=== PATIENT | female | born 1930 | race Two or more races ===

== ENCOUNTER 2019-10-01 02:13 | Inpatient (IN) | payer MEDICARE, MEDICAID ==
[~2019-10-01] VITALS: Ht 157.5 cm; Wt 78.0 kg
--- NOTE | 2019-10-01 02:23 | NUR ---
MS FINISHED STOCK INSPECTOR NOTES Received patient A/O x4, awake via gurney accompanied by 2 roller stitcher, direct admit from [place]. Admitted to [facility] due to RITO, UTI under the service of MD Ramírez. Admission routine done. Patient's belongings will be taken cared of by the family. Son at bedside. Initial skin assessment done, no skin issues identified at this time. Patient able to ambulates to bathroom with steady gait. Admission orders noted and carried out. MRSA sample collected, lab notified to picking supervisor the sample, stored accordingly. Kept on bed clean, dry and comfortable. Call light within easy reach. Will continue to monitor accordingly.
[2019-10-01 02:30] VITALS: BP 144/74
[2019-10-01] MEDS ORDERED: HYDROCODONE/APAP 5/325MG 1 EACH TABLET PO PRN (02:30)
[2019-10-01] MEDS ORDERED: MAGNESIUM HYDROXIDE 30 ML UDC PO PRN (02:30)
[2019-10-01] MEDS ORDERED: ACETAMINOPHEN 325 MG TABLET PO PRN (02:30)
[2019-10-01] MEDS ORDERED: MAG HYDROX/AL HYDROX/SIMETH 30 ML UDC PO PRN (02:30)
[2019-10-01] MEDS ORDERED: ONDANSETRON HCL/PF 4 MG/2 ML VIAL IVP PRN (02:30)
[2019-10-01] MEDS ORDERED: Z GUARD REMEDY 2 OZ OINT TP PRN (02:30)
[2019-10-01] MEDS ORDERED: ZOLPIDEM TARTRATE 5 MG TABLET PO PRN (02:30)
[2019-10-01] MEDS ORDERED: METF-442 PO (02:35)
[2019-10-01] MEDS ORDERED: BENA20TA9 PO (02:35)
[2019-10-01] MEDS ORDERED: METO50TA16 PO (02:35)
[2019-10-01] MEDS: IV D5/0.45 NACL 1,000 ML IV PRN ×3 (02:45→17:35)
[2019-10-01 02:51] VITALS: BP 144/74
--- NOTE | 2019-10-01 06:38 | NUR ---
MS RN CLOSING NOTES Patient asleep, easily awaken, son at bedside. All nursing needs attended, no new complaints/unusualities noted. Kept on bed clean, dry and comfortable. Call light within easy reach. On fall and aspiration precautions. No N/V noted within the shift. Endorsed to the next shift.
[2019-10-01 07:03] LABS: BASOPHILS % (AUTO) 0.2 % (0.0-2.0); EOSINOPHILS % (AUTO) 0.4 % (0.0-6.0); HEMATOCRIT 32 % (33-45); HEMOGLOBIN 10.8 g/dL (11.5-14.8); LYMPHOCYTES # (AUTO) 1.7 /CMM (0.8-4.8); LYMPHOCYTES % (AUTO) 22.6 % (20.0-44.0); MEAN CORPUSCULAR HGB CONC 34 g/dl (31.0-36.0); MEAN CORPUSCULAR VOLUME 90 fL (82-100); MONOCYTES # (AUTO) 0.7 /CMM (0.1-1.30); MONOCYTES % (AUTO) 9.3 % (2.0-12.0); NEUTROPHILS % (AUTO) 67.5 % (43.0-81.0); PLATELET COUNT (AUTO) 220 /CMM (150-450); RED BLOOD CELL COUNT(AUTO) 3.54 MIL/uL (4.0-5.2); WHITE BLOOD COUNT (AUTO) 7.4 K/uL (4.3-11.0)
[2019-10-01 07:51] LABS: ALANINE AMINOTRANSFERASE 9 U/L (12-78); ALBUMIN 2.8 g/dL (3.4-5.0); ALKALINE PHOSPHATASE 43 U/L (46-116); ASPARTATE AMINOTRANSFERASE 14 U/L (15-37); BILIRUBIN,TOTAL 0.3 mg/dL (0.2-1.0); CALCIUM, SERUM 8.3 mg/dL (8.5-10.1); CARBON DIOXIDE 23 mmol/L (21-32); CHLORIDE 100 mmol/L (98-107); CREATININE 1.9 mg/dL (0.6-1.3); GLUCOSE 141 mg/dL (74-106); POTASSIUM 4.2 mmol/L (3.5-5.1); SODIUM SERUM 133 mmol/L (136-145); TOTAL PROTEIN, SERUM 5.9 g/dL (6.4-8.2); UREA NITROGEN, BLOOD 25 mg/dL (7-18)
[2019-10-01 08:00] VITALS: BP 125/64
[2019-10-01 13:00] LABS: CREATININE, URINE 28.4 MG/DL (30.0-125.0); URINE TOTAL PROTEIN 15.8 mg/dL (0-11.9)
[2019-10-01 13:13] LABS: OCCULT BLOOD STOOL NEGATIVE (NEGATIVE)
[2019-10-01 15:17] LABS: APPEARANCE,URINE CLEAR (CLEAR); BILIRUBIN,URINE NEGATIVE (NEGATIVE); COLOR,URINE YELLOW (YELLOW); KETONES,URINE NEGATIVE (NEGATIVE); LEUKOCYTE ESTERASE ,URINE NEGATIVE (NEGATIVE); NITRITE, URINE NEGATIVE (NEGATIVE); PH,URINE 6.5 (5.0-8.0); PROTEIN,URINE NEGATIVE (NEGATIVE); UGLUCOSE NEGATIVE (NEGATIVE); UROBILINOGEN,URINE 0.2 EU/dL (0.2)
[2019-10-01 15:27] LABS: BLOOD, URINE NEGATIVE Ery/uL (NEGATIVE)
[2019-10-01] MEDS ORDERED: DEXTROSE 50%-WATER 50 ML DISP.SYRIN IV PRN (15:30)
[2019-10-01 15:58] LABS: EOSINOPHIL,URINE None Seen
[2019-10-01 16:00] VITALS: BP 128/68
[2019-10-01] MEDS: BLOOD SUGAR DIAGNOSTIC 1 EACH STRIP IN SCH ×2 (17:33→22:27)
--- NOTE | 2019-10-01 19:26 | NUR ---
MS RN CLOSING PATIENT REMAINS A/Ox3-4, ON ROOM AIR, NO RESPIRATORY DISTRESS OR SOB NOTED. FAMILY AT BEDSIDE. PATIENT VOMITED X1 TODAY, 25mL/ GREENISH/CHUNKY. REPORTS OF NAUSEA, ZOFRAN GIVEN. FAMILY REPORTS CONCERNS OF WHY THIS IS HAPPENING TO HER AND DON'T WANT TO BE D/C'D, SHE WAS RECENTLY HOSPITALIZED FOR SIMILAR SYMPTOMS. [place] REPORT CT ABDO FROM 09/26 IN CHART, VALERY THOMAS DNP AWARE. IV SITE C/D/I INFUSING FLUIDS ORDERED, BED ALARM ON. PATIENT ABLE TO AMBULATE. BED ALARM ON FOR SAFETY. CALL LIGHT WITHIN REACH, ENDORSED TO NOC RN FOR MOO
--- NOTE | 2019-10-01 20:11 | NUR ---
RECIEVED MS. BARON IN BED. ALERT AND ORIENATATED. SMILING DENIES NAUSES AT THIS TIME. SPEAKS SPAINISH WITH SOME UNDERSTANDING OF AMHARIC. FAMILY AT THE BEDSIDE. LYING ON HER LEFT SIDE. IV SITE W/O REDNESS BED ALARM MACHINERY MECHANIC LIGHT WITHIN REACH
[2019-10-01 21:23] VITALS: BP 132/63
[2019-10-01] MEDS: CEFTRIAXONE 1 G in IV D5W 50 ML IV SCH (21:50)
[2019-10-01] MEDS: INSULIN REGULAR, HUMAN 100 UNIT/ML 3 ML VIAL SQ PRN (22:32)
[2019-10-02] MEDS: IV D5/0.45 NACL 1,000 ML IV PRN ×2 (06:38→23:28)
--- NOTE | 2019-10-02 06:55 | NUR ---
URUGUAYAN SPEAKING. SON AT THE BEDSIDE THRU THE NIGHT AND WAS HELPFUL TO TRANSLATE. SHE REMAINS CONTINENT AND VOIDS 300 TO 500 CC EACH TIME. ASSISTED TO TA AND EFFECTIVE. HE BATHROOM SLOW CAUTIOUS AMBULATIONS. MEDICATED X 1 FOR NAUSE
--- NOTE | 2019-10-02 07:00 | NUR ---
MS INITIAL NOTES PATIENT RECEIVED FROM PM SHIFT. PATIENT IS A/OX4. PATIENT IS TOLERATING ROOM AIR , WITH NO SIGNS OF DISTRESS. PATIENT SON WAS AT BED SIDE. PATIENT IS AMBULATORY BUT NEEDS ASSISTANCE TO THE BATHROOM. PATIENT SHOW NO SIGNS OF SKIN BREAK DOWN. PATIENT WAS NOT IN PAIN PATIENT BED IN LOWEST POSTION, CALL LIGHT WITH IN REACH , SAFETY MAINTAINED. SON WAS NOTIFED ABOUT PLAN AND CARE WELL TREATMENT PLAN.
[2019-10-02 07:07] LABS: BASOPHILS % (AUTO) 0.3 % (0.0-2.0); EOSINOPHILS % (AUTO) 1.4 % (0.0-6.0); HEMATOCRIT 31 % (33-45); HEMOGLOBIN 10.6 g/dL (11.5-14.8); LYMPHOCYTES # (AUTO) 1.3 /CMM (0.8-4.8); LYMPHOCYTES % (AUTO) 18.7 % (20.0-44.0); MEAN CORPUSCULAR HGB CONC 34 g/dl (31.0-36.0); MEAN CORPUSCULAR VOLUME 90 fL (82-100); MONOCYTES # (AUTO) 0.7 /CMM (0.1-1.30); MONOCYTES % (AUTO) 10.1 % (2.0-12.0); NEUTROPHILS # (AUTO) 4.7 /CMM (1.8-8.9); NEUTROPHILS % (AUTO) 69.5 % (43.0-81.0); PLATELET COUNT (AUTO) 223 /CMM (150-450); RED BLOOD CELL COUNT(AUTO) 3.46 MIL/uL (4.0-5.2); WHITE BLOOD COUNT (AUTO) 6.7 K/uL (4.3-11.0)
[2019-10-02 07:23] LABS: IRON, SERUM 33 ug/dl (50-175); TOTAL IRON BINDING CAPACITY 193 ug/dl (250-450)
[2019-10-02 07:33] LABS: CHOLESTEROL 128 mg/dL (<200); CREATINE KINASE, TOTAL 69 U/L (26-192); FERRITIN 120 ng/mL (8-388); HDL CHOLESTEROL 35 mg/dL (40-60); LDL 77 mg/dL (0-99); THYROID STIMULATING HORMONE 0.678 uIU/mL (0.358-3.74); TRIGLYCERIDES 112 mg/dL (30-150)
[2019-10-02 07:36] LABS: ALANINE AMINOTRANSFERASE 11 U/L (12-78); ALBUMIN 2.8 g/dL (3.4-5.0); ALKALINE PHOSPHATASE 41 U/L (46-116); ASPARTATE AMINOTRANSFERASE 17 U/L (15-37); BILIRUBIN,TOTAL 0.2 mg/dL (0.2-1.0); CALCIUM, SERUM 8.3 mg/dL (8.5-10.1); CARBON DIOXIDE 23 mmol/L (21-32); CHLORIDE 101 mmol/L (98-107); CREATININE 1.8 mg/dL (0.6-1.3); GLUCOSE 147 mg/dL (74-106); MAGNESIUM 1.4 mg/dL (1.8-2.4); PHOSPHORUS 3.7 mg/dL (2.5-4.9); SODIUM SERUM 134 mmol/L (136-145); TOTAL PROTEIN, SERUM 5.9 g/dL (6.4-8.2); UREA NITROGEN, BLOOD 17 mg/dL (7-18)
[2019-10-02 08:00] VITALS: BP 127/76
[2019-10-02] MEDS: BLOOD SUGAR DIAGNOSTIC 1 EACH STRIP IN SCH ×4 (08:32→22:00)
[2019-10-02] MEDS: METOPROLOL TARTRATE 50 MG TABLET PO SCH (08:33)
[2019-10-02] MEDS: INSULIN REGULAR, HUMAN 100 UNIT/ML 3 ML VIAL SQ PRN ×2 (08:36→18:31)
[2019-10-02] MEDS: Magnesium 1GM/D5W 100ML PREMIX 100 ML IV SCH ×2 (12:33→14:06)
[2019-10-02 16:00] VITALS: BP_SYST 147; BP_SYST 163; BP_DIAS 79
--- NOTE | 2019-10-02 19:30 | NUR ---
MS RN OPENING NOTES: RECEIVED PATIENT RESTING IN BED, A/O X4, FAMILY MEMBER AT THE BEDSIDE. ASSISTED TO THE BATHROOM, AMBULATORY, STEADY. NO COMPLAIN OF PAIN. WENT BACK TO THE BED. CALL LIGHT WITHIN REACH, INSTRUCTED TO CALL FOR ASSISTANCE WHEN GOING TO THE BATHROOM, VERBALIZED UNDERSTANDING. BED IN LOWEST AND LOCKED POSITION.
--- NOTE | 2019-10-02 19:30 | NUR ---
MS CLOSING NOTES PATIENT ENDORSED TO PM SHIFT PATIENT IS AWAKE WITH SON AT BEDSIDE. PATIENT IS TOLERATING ROOM AIR WITH NO SIGNS OF DISTRESS. BED IN LOWEST POSITION . SAFETY MAINTAINED AND CALL LIGHT WITH IN REACH .
[2019-10-02 20:00] VITALS: BP 156/76
[2019-10-02] MEDS: CEFTRIAXONE 1 G in IV D5W 50 ML IV SCH (22:04)
--- NOTE | 2019-10-02 22:05 | NUR ---
INSULIN HELD FOR BLOOD SUGAR FINGERSTICK OF 69, APPLE JUICE AND JELLO GIVEN. WILL RECHECK AGAIN LATER.
[2019-10-03 04:00] VITALS: BP 156/76
--- NOTE | 2019-10-03 05:00 | NUR ---
MS RN CLOSING NOTES: PATIENT IS RESTING COMFORTABLY IN BED. A/O X4. NO ACUTE EVENTS OVERNIGHT. NO COMPLAINED OF PAIN. AMBULATORY. VOIDING GOOD. DAUGHTER AT THE BEDSIDE. CALL LIGHT WITHIN REACH. BED IN LOWEST AND LOCKED POSITION.AFEBRILE.
[2019-10-03 08:00] VITALS: BP 148/72
[2019-10-03 08:13] LABS: CALCIUM, SERUM 8.4 mg/dL (8.5-10.1); CARBON DIOXIDE 22 mmol/L (21-32); CHLORIDE 101 mmol/L (98-107); CREATININE 1.7 mg/dL (0.6-1.3); GLUCOSE 157 mg/dL (74-106); POTASSIUM 4.2 mmol/L (3.5-5.1); SODIUM SERUM 132 mmol/L (136-145); UREA NITROGEN, BLOOD 14 mg/dL (7-18)
[2019-10-03] MEDS: BLOOD SUGAR DIAGNOSTIC 1 EACH STRIP IN SCH ×2 (08:16→12:08)
--- NOTE | 2019-10-03 08:21 | NUR ---
RECIEVED WITH DAUGHTER AT BEDSIDE .BLOOD SUGAR 144MG/DL. COVERAGE REFUSED, ON D51/2 SALINE. WILL INFORM THE PHYSICIAN ABOUT THE IVF,
[2019-10-03 09:37] VITALS: BP 148/72
[2019-10-03] MEDS: METOPROLOL TARTRATE 50 MG TABLET PO SCH (09:37)
--- NOTE | 2019-10-03 10:05 | NUR ---
iv cannula infiltrated and leaking.discontinued and dressing applied.o signs on infection noted
--- NOTE | 2019-10-03 10:21 | NUR ---
iv cannula inserted aseptically to the left forearm g 22 . assisted to the bathroom per patient,s request,
--- NOTE | 2019-10-03 10:45 | NUR ---
assisted back to bed and ivf restarted, tolerated the rpocedure,with call light within reach ,undestand instructions to call if with needs
[2019-10-03 12:06] LABS: PTH, INTACT 70 pg/mL (15-65)
--- NOTE | 2019-10-03 12:08 | NUR ---
blood sugar 151mg/dl.patient refused insulin dose and did not eat breakfast, coverage will be held, will wait for the physician to make round if the order for d51/2 saline ivf still needs to continue as the patient is diabetic,
--- NOTE | 2019-10-03 14:15 | NUR ---
DR Smith informed that the patient refused the insulin coverage and has not eaten the breakfast serve, /dr Smith taked to the family and is informed that the patient eats the food that the family bringsn from home and for possible discharge today. on the process
--- NOTE | 2019-10-03 15:23 | NUR ---
Dr Smith with orders for dischage. iv cannula discontinued and dressing applied. discharge instruction done and will be given to the patient Addendum: 10/03/19 at 1525 by SABINO TENA RN DR Smith informed that the patient is on metropolol and the heart rate goes down to 54 to 56 and back to the 60 and 70.ith no further orders
[2019-10-03] MEDS ORDERED: PNEUMOCOCCAL 23-VAL P-SAC VAC 0.5 ML VIAL SQ ONE (15:30)
--- NOTE | 2019-10-03 15:36 | NUR ---
iv cannula discontinued and dressing applied to the site, no signs of infection noted
--- NOTE | 2019-10-03 15:42 | NUR ---
will administer pneumonia vaccine per family request.
--- NOTE | 2019-10-03 15:55 | NUR ---
pneumonia vaccine given to the right deltooid sq , discharge instructions given to then son and expressed understanding. will follow up withm the primary care physician in one week or with insstruction if any untoward symptoms not relieved to go back to the hospital .
--- NOTE | 2019-10-03 16:03 | NUR ---
discharge with family via wheelchair in stable condition and son asking for walker with ask from the primasry care physician and needs to follow up with her primary care physician in one week, family anmd patient expressed understanding
[2019-10-05 12:06] LABS: *SPE A/G RATIO 1.1 (0.7-1.7); *SPE ALBUMIN 2.9 g/dL (2.9-4.4); *SPE ALPHA-1-GLOBULIN 0.2 g/dL (0.0-0.4); *SPE ALPHA-2-GLOBULIN 0.8 g/dL (0.4-1.0); *SPE BETA GLOBULIN 0.7 g/dL (0.7-1.3); *SPE GLOBULIN, TOTAL 2.7 g/dL (2.2-3.9); *SPE M-SPIKE Not Observed g/dL (Not Observed)
== END 2019-10-03 16:00 | disposition home or self-care (01) | DRG 689 ==
LOC: MEDSG1 02:13
PROVIDERS: ADMIT Hospitalist; ATTEND Hospitalist
DX: N39.0 Urinary tract infection, site not specified (principal); N17.0 Acute kidney failure with tubular necrosis; E87.1 Hypo-osmolality and hyponatremia; E44.0 Moderate protein-calorie malnutrition; D63.8 Anemia in other chronic diseases classified elsewhere; E66.9 Obesity, unspecified; N18.9 Chronic kidney disease, unspecified; I12.9 Hypertensive chronic kidney disease with stage 1 through stage 4 chronic kidney disease, or unspecified chronic kidney disease; E88.09 Other disorders of plasma-protein metabolism, not elsewhere classified; E86.1 Hypovolemia; Z68.31 Body mass index [BMI] 31.0-31.9, adult; Z79.84 Long term (current) use of oral hypoglycemic drugs; E11.22 Type 2 diabetes mellitus with diabetic chronic kidney disease; D50.9 Iron deficiency anemia, unspecified
CPT/HCPCS: 36415; 76770-TC; 80048-TC; 80053-TC; 80061-TC; 81000-TC; 82272-TC; 82550-TC; 82570-TC; 82728-TC; 82962-TC; 83540-TC; 83735-TC; 83970; 84100-TC; 84155; 84155-TC; 84165; 84300-TC; 84443-TC; 85025-TC; 87081-TC; 90732; G0378; J0696; J1815; J2405; J3475; J3490; J7060

== ENCOUNTER 2019-10-06 15:09 | Outpatient (CLI) | payer MEDICARE, MEDICAID ==
[~2019-10-06 15:09] MED LIST: METO50TA16 PO
[2019-10-06 15:26] VITALS: BP 149/74
== END 2019-10-06 23:59 | disposition home or self-care (01) ==
LOC: MSC 15:09
PROVIDERS: ATTEND Internal Medicine
DX: I12.9 Hypertensive chronic kidney disease with stage 1 through stage 4 chronic kidney disease, or unspecified chronic kidney disease (principal); E11.22 Type 2 diabetes mellitus with diabetic chronic kidney disease; N18.9 Chronic kidney disease, unspecified; N17.9 Acute kidney failure, unspecified; Z79.84 Long term (current) use of oral hypoglycemic drugs; D63.8 Anemia in other chronic diseases classified elsewhere; E66.9 Obesity, unspecified